=== PATIENT | male | born 1995 | race Caucasian/White ===

== ENCOUNTER 2021-11-20 06:24 | Emergency (ER) | payer OTHER, SELFPAY ==
[2021-11-20 06:24] VITALS: BP 137/74; PULSE 52; RESP 18; TEMP 36.6; O2SAT 95; BMI 35.6
--- NOTE | 2021-11-20 06:40 | RAD_ITS ---
STUDY: X-RAY CHEST REASON FOR EXAM: Male, 26 years old. cough TECHNIQUE: AP portable. 7:17 AM COMPARISON: None. FINDINGS: LUNGS: No consolidation. No pneumothorax. MEDIASTINUM: Unremarkable. CARDIAC SILHOUETTE: Not enlarged. BONES AND SOFT TISSUES: No acute abnormalities. RAD/Chest 1 View (Portable) IMPRESSION: No evidence of active intrathoracic disease. Electronically Signed: Ana Marie MD at 7:31 EDT ,
--- NOTE | 2021-11-20 06:40 | EKG12_ITS ---
Test Reason : SYNCOPE Blood Pressure : / mmHG Vent. Rate : 097 BPM Atrial Rate : 097 BPM P-R Int : 142 ms QRS Dur : 088 ms QT Int : 342 ms P-R-T Axes : 043 010 -02 degrees QTc Int : 434 ms Normal sinus rhythm Normal ECG Confirmed by KELI ALCANTAR, GABI ([id number]), newspaper or periodical editor WILMA ESCAMILLA ([id number]) on 11/23/2021 9:39:30 AM Referred By: DIANNE Confirmed By:BLAYNE DICKEY MD
--- NOTE | 2021-11-20 06:40 | CT_ITS ---
STUDY: CT BRAIN WITHOUT CONTRAST REASON FOR EXAM: Male, 26 years old. syncope RADIATION DOSAGE (If Supplied By Facility): CTDIvol = ( 44.99 ) mGy, DLP = ( 779.24 ) mGycm TECHNIQUE: Transaxial CT imaging of the brain was performed without administration of intravenous contrast material. Individualized dose optimization techniques were used for this CT. COMPARISON: No relevant priors. FINDINGS: BRAIN: No acute bleed. No edema. Alanis-white matter differentiation is maintained. VENTRICLES AND SULCI: Not dilated. EXTRA-AXIAL: No hemorrhage, fluid collection, or mass. CALVARIUM / SKULL BASE: Unremarkable. FACE/SINUSES: Unremarkable. SOFT TISSUES: Unremarkable. CT/Brain/Head without Contrast IMPRESSION: No acute abnormality. Electronically Signed: Ana Marie MD at 7:26 EDT ,
[2021-11-20 06:43] VITALS: BP 126/76; BP 134/73; BP 142/76; PULSE 122; PULSE 98
[2021-11-20 06:56] LABS: Absolute Lymphocyte Count 0.89 X10^3/uL (0.83-4.51); Absolute Neutrophil Count 6.3 X10^3/uL (2.0-7.7); Basophil# 0.01 X10^3/uL; Basophil% 0.1 % (0-1); Hematocrit 40.4 % (40-54); Hemoglobin 13.4 g/dL (13.0-16.5); Lymphocyte # 0.89 X10^3/ul (0.83-4.51); Lymphocyte % 10.1 % (19-41); Mean Corp Hgb Conc 33.2 g/dL (32-36); Mean Corpuscular Hgb 27.9 pg (27.0-32.0); Mean Platelet Vol. 9.1 fl (6.2-12.0); Monocyte# 1.55 X10^3/uL; Monocyte% 17.7 % (0-10); NRBC Flagged by Analyzer 0 % (0-5); Neutrophil # 6.29 X10^3/uL (2.7-7.7); Neutrophil % 71.8 % (47-70); POSITIVE DIFFERENTIAL YES; Platelet Count 237 K/mm3 (150-450); RBC Distribution Width CV 12.5 % (11.6-14.6); RBC Distribution Width SD 37.9 fl (35.1-43.9); Red Blood Count 4.81 M/mm3 (4.6-6.2); White Blood Count 8.8 K/mm3 (4.4-11.0)
[2021-11-20] MEDS: 0.9% Normal Saline 1,000 ML 999 ML IV ×2 (06:56→07:54)
[2021-11-20] MEDS: dexAMETHasone 10 MG/ML Vial IV (06:56)
[2021-11-20 06:58] LABS: Differential Indicated SCAN CRITERIA MET
--- NOTE | 2021-11-20 07:07 | EDS_ITS ---
HPI History of Present Illness Chief Complaint: Syncope Narrative Narrative: Patient is a 26-year-old male with no significant past medical history. He states he started getting a scratchy/sore throat and mild congestion on Tuesday and then tested positive for COVID on Tuesday. He states that night into Tuesday morning he had gotten up to blow his nose in the bathroom and then the next thing he knows he is waking up on the kitchen floor. He states he does not know how he got to the kitchen and he denies having any type of chest pain or palpitation. However with his recent COVID diagnosis and the fact that he most likely had a syncopal event he comes in for evaluation. Patient denies taking any new medication because of the COVID and he denies any family history of cardiac disease at a young age or cardiac dysrhythmia. PFSH PFSH Medical History no medical history no medical history Home Medications loratadine 10 mg tablet (Claritin) 10 mg PO DAILY 11/20/21 [History Last Taken Unknown] Allergy/AdvReac Type Severity Reaction Status Date / Time amoxicillin [From Augmentin] Allergy Rash Verified 11/20/21 06:29 azithromycin [From Zithromax] Allergy Rash Verified 11/20/21 06:29 clavulanic acid Allergy Rash Verified 11/20/21 06:29 [From Augmentin] sweet potato Allergy Rash Verified 11/20/21 06:29 Family History no significant family his Social History Smoking Status: Never smoker [facility] ED Constitutional Constitutional ED: Reports chills, fever(s) and subjective Eyes Eyes: Denies change in vision ENT ENT ED: Reports rhinorrhea and sore throat Cardiovascular Cardiovascular: Denies chest pain, palpitations or racing heartbeat Respiratory/Chest Respiratory/Chest: Reports cough Gastrointestinal Gastrointestinal: Denies abdominal pain, diarrhea, nausea or vomiting Genitourinary Genitourinary ED: Denies dysuria Musculoskeletal Musculoskeletal: Reports myalgias Integumentary Denies rash Neurologic Neurologic: Denies headache(s) EXAM Physical Exam Const Vital Signs: 11/20/21 06:24 11/20/21 06:43 Temperature 98 F Temperature Source Temporal Pulse Rate 52 L Pulse Rate [Lying] 98 Pulse Rate [Sitting (for 1 minute prior to obtaining)] 98 Pulse Rate [Standing (for 1 minute prior to obtaining)] 122 H Respiratory Rate 18 Blood Pressure 137/74 H Blood Pressure [Lying] 142/76 H Blood Pressure [Sitting (for 1 minute prior to obtaining)] 134/73 H Blood Pressure [Standing (for 1 minute prior to obtaining)] 126/76 H Blood Pressure Mean 95 Blood Pressure Mean [Lying] 98 Blood Pressure Mean [Sitting (for 1 minute prior to obtaining)] 93 Blood Pressure Mean [Standing (for 1 minute prior to obtaining)] 92 Pulse Ox 95 Oxygen Delivery Method Room Air Positive well nourished and well developed General Appearance ED: well developed HEENT Reports moist mucous membranes HEENT Narrative: Mild cobblestoning the posterior pharynx consistent with sinus drainage without airway edema or compromise Patient has a small 1 x 2 cephalohematoma to the right occipital portion of the scalp without signs of depressed or basilar skull fracture Eyes PERRL and EOMs intact bilaterally Neck supple Neck Narrative: No bony deformity or step-off of the cervical spine no midline pain on palpation Resp normal respiratory effort and clear to auscultation bilaterally Cardio regular rhythm Rate: tachycardic and other Other Details: Radial pulses are plus 2 out of 4 bilaterally are equal and symmetric GI normal to inspection, nondistended, normoactive bowel sounds, non-tender and non-distended Auscultation: normoactive bowel sounds Palpation: soft Back/Spine Back/Spine Narrative: No bony deformity or step-off of the thoracic or lumbar spine no midline pain on palpation Extremity normal to inspection Neuro oriented x3 and CN's II-XII intact bilaterally Neuro Narrative: Cranial nerves II through XII are grossly intact no focal neurologic deficit. No pronator drift no dysmetria no truncal ataxia. NIH stroke scale score of 0 Sensorium / Orientation: alert Psych mental status grossly normal Skin no rashes or lesions noted MDM MDM MDM Narrative Medical decision making narrative: Patient presented to the ER afebrile and in no acute distress. Neuro exam was normal as well. He was slightly tachycardic but in sinus without a dysrhythmia. At this time I feel symptoms are most likely orthostatic in nature based on his recent COVID diagnosis and secondary dehydration from his fevers and chills. However based on his syncopal event and recent COVID diagnosis a basic work-up will be obtained. I feel that if work-up reveals no acute findings and he does not go into dysrhythmia in the ER then patient should be safe for discharge. Patient will be signed out to Dr. Littlejohn pending completion of his work-up. Lab Data Attestation: I reviewed the patient's lab results. Labs: Laboratory Results - last 24 hr 11/20/21 06:45 WBC 8.8 RBC 4.81 Hgb 13.4 Hct 40.4 MCV 84.0 MCH 27.9 MCHC 33.2 RDW Std Deviation 37.9 RDW Coeff of Gem 12.5 Plt Count 237 MPV 9.1 Immature Gran % (Auto) 0.300 Neut % (Auto) 71.8 H Lymph % (Auto) 10.1 L [place] % (Auto) 17.7 H Eos % (Auto) 0.0 Baso % (Auto) 0.1 Absolute Neuts (auto) 6.3 Absolute Lymphs (auto) 0.89 Nucleated RBC % 0 Discharge Plan Triage Chief Complaint: Syncope ED Provider: Yonis Lombardo Dx/Rx/DC Orders Clinical Impression: Syncope, COVID-19 Prescriptions: No Action loratadine [Claritin] 10 mg Tablet 10 mg PO DAILY Primary Care Provider: Soumya Alvarado Referrals: Soumya Alvarado MD [Primary Care Provider] -
[2021-11-20 07:11] LABS: Anion Gap 6 (5-15); BUN 13 mg/dL (7-18); BUN/Creat Ratio 9.5 RATIO (10-20); Calcium,Total 8.7 mg/dL (8.5-10.1); Chloride 105 mmol/L (98-107); Creatinine, Serum 1.37 mg/dL (0.70-1.30); EST Glomerular Filtration Rate 68 mL/min (>60); Est Glom Filt Rate - Afr Amer 82 mL/min (>60); Estimated Creatinine Clearance 80.44 ml/min; Glucose 113 mg/dL (74-106); Magnesium 2.1 mg/dL (1.6-2.6); Potassium 3.9 mmol/L (3.5-5.1); Sodium Level 138 mmol/L (136-145)
--- NOTE | 2021-11-20 07:43 | EX.ED.DYSGE1 ---
HPI History of Present Illness Chief Complaint: Syncope [facility] Medical History no medical history Home Medications loratadine 10 mg tablet (Claritin) 10 mg PO DAILY 11/20/21 [History Last Taken Unknown] nirmatrelvir 300 mg (150 mg x2)-ritonavir 100 mg tablet,dose pack(EUA) (Paxlovid) See Rx Instructions PO .COMPLEX #30 tabs 11/20/21 [Rx Last Taken Unknown] Allergy/AdvReac Type Severity Reaction Status Date / Time amoxicillin [From Augmentin] Allergy Rash Verified 11/20/21 06:29 azithromycin [From Zithromax] Allergy Rash Verified 11/20/21 06:29 clavulanic acid Allergy Rash Verified 11/20/21 06:29 [From Augmentin] sweet potato Allergy Rash Verified 11/20/21 06:29 Family History no significant family his Social History Smoking Status: Never smoker EXAM Physical Exam Const Vital Signs: 11/20/21 06:24 11/20/21 06:43 Temperature 98 F Temperature Source Temporal Pulse Rate 52 L Pulse Rate [Lying] 98 Pulse Rate [Sitting (for 1 minute prior to obtaining)] 98 Pulse Rate [Standing (for 1 minute prior to obtaining)] 122 H Respiratory Rate 18 Blood Pressure 137/74 H Blood Pressure [Lying] 142/76 H Blood Pressure [Sitting (for 1 minute prior to obtaining)] 134/73 H Blood Pressure [Standing (for 1 minute prior to obtaining)] 126/76 H Blood Pressure Mean 95 Blood Pressure Mean [Lying] 98 Blood Pressure Mean [Sitting (for 1 minute prior to obtaining)] 93 Blood Pressure Mean [Standing (for 1 minute prior to obtaining)] 92 Pulse Ox 95 Oxygen Delivery Method Room Air [facility] Lab Data Labs: Laboratory Results - last 24 hr 11/20/21 11/20/21 06:45 06:45 WBC 8.8 RBC 4.81 Hgb 13.4 Hct 40.4 MCV 84.0 MCH 27.9 MCHC 33.2 RDW Std Deviation 37.9 RDW Coeff of Gem 12.5 Plt Count 237 MPV 9.1 Immature Gran % (Auto) 0.300 Neut % (Auto) 71.8 H Lymph % (Auto) 10.1 L [place] % (Auto) 17.7 H Eos % (Auto) 0.0 Baso % (Auto) 0.1 Absolute Neuts (auto) 6.3 Absolute Lymphs (auto) 0.89 Nucleated RBC % 0 Sodium 138 Potassium 3.9 Chloride 105 Carbon Dioxide 27.0 Anion Gap 6 BUN 13 Creatinine 1.37 H Estim Creat Clear Calc 80.44 Est GFR (MDRD) Af Amer 82 Est GFR (MDRD) Non-Af 68 BUN/Creatinine Ratio 9.5 L Glucose 113 H Calcium 8.7 Magnesium 2.1 Radiography Diagnostic Testing: Clinical Impression(s) from Imaging Studies Brain CT 11/20/21 06:40 IMPRESSION: No acute abnormality. Electronically Signed: Ana Marie MD at 7:26 EDT , Chest X-Ray 11/20/21 06:40 IMPRESSION: No evidence of active intrathoracic disease. Electronically Signed: Ana Marie MD at 7:31 EDT , Discharge Plan Triage Chief Complaint: Syncope ED Provider: Yonis Lombardo Dx/Rx/DC Orders Clinical Impression: Syncope, COVID-19, Dehydration Instructions: Coronavirus Disease 2019 (COVID-19): Caring for Yourself or Others, ED Hypotension, Orthostatic Prescriptions: New Paxlovid (EUA) 300 mg (150 mg x 2)-100 mg tablets,dose pack See Rx Instructions .ROUTE .COMPLEX Qty: 30 0RF Rx Instructions: take TWO 150 mg tablets of nirmatrelvir with ONE 100 mg tablet of ritonavir twice daily for 5 days No Action loratadine [Claritin] 10 mg Tablet 10 mg PO DAILY Primary Care Provider: Soumya Alvarado Referrals: Soumya Alvarado MD [Primary Care Provider] - Activity Restrictions/Additional Instructions: Please keep yourself well-hydrated and return to the ER should you have any further concerns Disposition Disposition: Home, Self Care Discharge Date/Time: 11/20/21 09:45
[2021-11-20 08:05] VITALS: BP 139/82; PULSE 97; RESP 16; O2SAT 100
[2021-11-20 08:14] LABS: Platelet Estimate ADEQUATE (ADEQ); Red Cell Morphology NORM C+C NORMAL (NORM C&C)
[2021-11-20 09:35] VITALS: BP 143/75; PULSE 68; RESP 16; O2SAT 99
== END 2021-11-20 09:45 | disposition home or self-care (01) ==
PROVIDERS: Emergency Provider Emergency Medicine; PCP Internal Medicine; Visit Provider Emergency Medicine
DX: U07.1 COVID-19 (principal); R55 Syncope and collapse; E86.0 Dehydration; S00.03XA Contusion of scalp, initial encounter; W19.XXXA Unspecified fall, initial encounter
CPT/HCPCS: 70450; 71045; 80048; 83735; 85025; 93005; 96361; 96374; 99282; J7030